=== PATIENT | female | born 1955 | race Asian ===

== ENCOUNTER 2018-09-04 17:33 | Emergency (ER) | payer SELFPAY ==
[~2018-09-04] VITALS: Ht 167.6 cm; Wt 72.0 kg
[2018-09-04] MEDS ORDERED: ACETAMINOPHEN 325MG TABLET PO ONE (18:15)
[2018-09-04] MEDS ORDERED: IBUPROFEN 600MG TABLET PO ONE (18:15)
[2018-09-04 21:34] VITALS: BP 136/74
== END 2018-09-04 22:32 | disposition home or self-care (01) ==
LOC: ER 18:21
DX: S00.83XA Contusion of other part of head, initial encounter (principal); S16.1XXA Strain of muscle, fascia and tendon at neck level, initial encounter; W01.0XXA Fall on same level from slipping, tripping and stumbling without subsequent striking against object, initial encounter; Y93.89 Activity, other specified; Y92.89 Other specified places as the place of occurrence of the external cause; Y99.8 Other external cause status
CPT/HCPCS: 70486; 73030; 99284; A4565